=== PATIENT | male | born 1960 | race Caucasian/White ===

== ENCOUNTER 2022-03-21 08:39 | Outpatient (RCR) | payer MEDICAID, SELFPAY | END 2022-06-29 16:02 | disposition home or self-care (01) | PROVIDERS: PCP Family Medicine; Visit Provider Surgery | DX: M67.911 Unspecified disorder of synovium and tendon, right shoulder (principal); M25.511 Pain in right shoulder; M62.81 Muscle weakness (generalized); Z51.89 Encounter for other specified aftercare | CPT/HCPCS: 97162 ==